=== PATIENT | male | born 1940 | race Caucasian/White ===

== ENCOUNTER 2016-12-23 14:42 | Inpatient (IN) | payer MEDICARE ==
--- NOTE | 2016-12-23 21:22 | PCM.HP ---
H&P History of Present Illness - General Date of Service: 12/23/16 Admit Problem/Dx: Admission Diagnosis/Problem Admission Diagnosis/Problem Weight loss Source of Information: Family History Limitations: Reports: Altered mental status, Physical impairment - History of Present Illness Initial Comments - Free Text/Narative: Jimmy is a 76-year-old male who has been diagnosed with severe mitral regurgitation and severe heart failure with a surgery procedure not an option. He's also been suffering from chronic kidney disease. He's had significant fluid retention secondary to cardiac dysfunction and he has become incontinent of urine and stool and confused. He has been passing his bodily functions on the rug or floor. He's also lost continence of urine and stool in the bed and the family has been cleaning him up. They've had a hard time when he falls to get him up off the floor as he is becoming totally confused and the family is unable to give him care at the present time. He recently has been hypotensive eating very minimal and losing a lot of weight. He's also had a rash in his groin area but refuses to have it evaluated. Onset of Symptoms: Reports: gradual Duration of Symptoms: Reports: Week(s): Location: Reports: generalized Severity: severe Associated Symptoms: Reports: confusion, cough, malaise, weakness - Related Data Allergies/Adverse Reactions: Allergies Allergy/AdvReac Type Severity Reaction Status Date / Time No Known Allergies Allergy Verified 12/24/16 08:38 Home Medications: Home Meds Aspirin [Ecotrin] 81 mg PO DAILY 12/23/16 [History] Furosemide [Lasix] 40 mg PO BID 12/23/16 [History] Past Medical History Cardiovascular History: Reports: Heart Failure, [place] Genitourinary History: Reports: Renal disease, Urinary incontinence Musculoskeletal History: Reports: Amputation - Past Surgical History HEENT Surgical History: Reports: Cataract surgery Male Surgical History: Reports: None Social & Family History - Tobacco Use Smoking Status *Q: Current Every Day Smoker Years of Tobacco use: 74 Packs/Tins Daily: 0.5 Used Tobacco, but Quit: Yes Month Tobacco Last Used: unknown - Caffeine Use Caffeine Use: Reports: None - Recreational Drug Use Recreational Drug Use: No H&P Review of Systems - Review of Systems: Review Of Systems: See Below General: Reports: weakness, decreased appetite, weight loss HEENT: Reports: hearing changes Pulmonary: Reports: shortness of breath, cough Cardiovascular: Reports: dyspnea on exertion, orthopnea, edema Gastrointestinal: Reports: Diarrhea Genitourinary: Reports: frequency, urgency Musculoskeletal: Reports: muscle pain Skin: Reports: no symptoms Psychiatric: Reports: no symptoms Neurological: Reports: difficulty walking, weakness, gait disturbance Exam - Exam Exam: See Below - Vital Signs Vital Signs: Last Vital Signs Temp 98 F 12/23/16 19:20 Pulse 58 L 12/23/16 19:20 Resp 19 12/23/16 19:20 BP 88/58 L 12/23/16 20:12 Pulse Ox 86 L 12/23/16 19:20 - Exam General: moderate distress HEENT: PERRLA Neck: supple Lungs: Normal respiratory effort Cardiovascular: regular rate Abdomen: normal bowel sounds Extremities: edema Peripheral Pulses: 1+: radial (L), radial (R) Skin: warm, dry Neurological: cranial nerves intact, reflexes equal bilateral, strength equal bilateral Psychiatric: agitated - Patient Data Lab Results last 24 hrs: Laboratory Results - last 24 hr 12/23/16 12/23/16 Range/Units 16:05 16:05 WBC 9.0 (4.5-11.0) K/uL RBC 4.12 L (4.30-5.90) M/uL Hgb 13.9 (12.0-15.0) g/dL Hct 42.2 (40.0-54.0) % MCV 102 H (80-98) fL MCH 34 H (27-31) pg MCHC 33 (32-36) % Plt Count 131 L (150-400) K/uL Neut % (Auto) 85 H (36-66) % Lymph % (Auto) 10 L (24-44) % Ogle % (Auto) 5 (2-6) % Eos % (Auto) 1 L (2-4) % Baso % (Auto) 0 (0-1) % Sodium 131 L (140-148) mmol/L Potassium 5.3 H (3.6-5.2) mmol/L Chloride 91 L (100-108) mmol/L Carbon Dioxide 33 H (21-32) mmol/L Anion Gap 12.3 (5.0-14.0) mmol/L BUN 87 H* (7-18) mg/dL Creatinine 3.0 H (0.8-1.3) mg/dL Est Cr Clr Drug Dosing TNP Estimated GFR (MDRD) 20 L (>60) Glucose 143 H (74-106) mg/dL Calcium 8.3 L (8.5-10.1) mg/dL Total Bilirubin 2.3 H (0.2-1.0) mg/dL AST 36 (15-37) U/L ALT 29 (12-78) U/L Alkaline Phosphatase 92 (46-116) U/L Total Protein 7.3 (6.4-8.2) g/dL Albumin 2.5 L (3.4-5.0) g/dL Globulin 4.8 H (2.3-3.5) g/dL Albumin/Globulin Ratio 0.5 L (1.2-2.2) TSH, Ultra Sensitive 1.117 (0.358-3.740) uIU/mL Result Diagrams: 12/23/16 16:05 12/24/16 05:00 *Q Meaningful Use (ADM) - VTE *Q VTE Criteria *Q: - Stroke *Q Stroke Criteria *Q: - AMI *Q AMI Criteria *Q: Problem List Initiated/Reviewed/Updated: Yes Orders Last 24hrs: Active Orders 24 hr Category Date Time Status Admission Status [Patient Status] [ADT] Routine ADT 12/23/16 13:00 Active Patient Status [ADT] Routine ADT 12/23/16 17:09 Active Height and Weight [RC] DAILY Care 12/23/16 17:09 Active Intake and Output [RC] .PRN Care 12/23/16 17:16 Active May Shower [RC] ASDIRECTED Care 12/23/16 17:09 Active Oxygen Therapy [RC] PRN Care 12/23/16 17:09 Active Up ad Lakia [RC] ASDIRECTED Care 12/23/16 17:09 Active Up to Chair [RC] QID Care 12/23/16 17:09 Active VTE/DVT Education [RC] Per Unit Routine Care 12/23/16 17:09 Active Vital Signs [RC] Q4H Care 12/23/16 17:09 Active Nystatin [Nystatin Crm] Med 12/23/16 21:00 Pending 1 gm TOP TID Resuscitation Status Routine Resus Stat 12/23/16 17:09 Ordered Medication Orders Nystatin (Nystatin Crm) 1 gm TOP TID [facility] Assessment/Plan Comment:: Assessment/Plan: #1. Dehydration. I will attempt to start an IV and given fluids and hopefully his kidney function will improve. His creatinine is 3 and BUN of 87. #2. Acute renal failure. I will try to get an IV started and give him fluids to improve his kidney function. #3. Mitral valve regurgitation. His mitral valve prolapse is not possible to repair as he is a poor surgical risk. #4. Malnutrition.. He's been losing weight on a regular basis. We'll try to get nutrition more appropriate. #5. Nicotine addiction
[2016-12-24] MEDS: Dextrose 5%-0.9% NaCl 1,000 ML IV SCH ×2 (00:54→11:52)
[2016-12-24] MEDS: Nystatin Crm 15 GM Tube TOP SCH ×4 (01:17→22:52)
--- NOTE | 2016-12-24 08:54 | CR ---
Portable chest There is infiltrate involving medial right lung base. The heart and vascular structures are within n ormal limits. There are no significant effusions seen. Impression: 1. Right lower lobe pneumonia. Follow-up is recommended to confirm resolution.
[2016-12-24] MEDS ORDERED: cefTRIAXone 1 GM in Sodium Chloride 0.9% 50 ML IV SCH (12:00)
[2016-12-24] MEDS ORDERED: Levofloxacin/Dextrose 5%-Water 750 MG in Premix Bag 1 BAG IV SCH (13:00)
[2016-12-24 20:00] VITALS: BP 86/68
--- NOTE | 2016-12-24 21:50 | PCM.PN ---
- General Info Date of Service: 12/24/16 Subjective Update: He has verbalized several times he wants nothing done and he wants to . There was a family counseled this afternoon. They met and want he on comfort cares only including no meds for a lung infiltrate. - Review of Systems General: Reports: weakness HEENT: Reports: visual changes Pulmonary: Reports: shortness of breath Cardiovascular: Reports: dyspnea on exertion, orthopnea Gastrointestinal: Reports: No symptoms Genitourinary: Reports: no symptoms Skin: Reports: pallor Neurological: Reports: confusion, difficulty walking, weakness, gait disturbance Psychiatric: Reports: confusion, depression - Patient Data Vitals - most recent: Last Vital Signs Temp 94.3 F L 12/24/16 19:58 Pulse 100 12/24/16 19:58 Resp 14 12/24/16 19:58 BP 86/68 L 12/24/16 19:58 Pulse Ox 93 L 12/24/16 19:58 Weight - most recent: 162 lb 0.001 oz I&O - last 24 hours: Intake & Output 12/24/16 12/24/16 12/24/16 06:59 14:59 22:59 Intake Total 126 977 [id number] Output Total 200 100 Balance 209 242 [id number] Lab Results last 24 hrs: Laboratory Results - last 24 hr 12/24/16 Range/Units 05:00 Sodium 135 L (140-148) mmol/L Potassium 4.5 (3.6-5.2) mmol/L Chloride 93 L (100-108) mmol/L Carbon Dioxide 33 H (21-32) mmol/L Anion Gap 13.5 (5.0-14.0) mmol/L BUN 89 H* (7-18) mg/dL Creatinine 2.9 H (0.8-1.3) mg/dL Est Cr Clr Drug Dosing TNP Estimated GFR (MDRD) 21 L (>60) Glucose 139 H (74-106) mg/dL Calcium 8.6 (8.5-10.1) mg/dL [place] Results last 24 hrs: Microbiology 12/24/16 13:39 Gram Stain - Final Sputum - Expectorated Med Orders - Current: Current Medications Nystatin (Nystatin Crm) 0 gm TOP TID [facility] Last Admin: 12/24/16 14:48 Dose: Not Given Discontinued Medications Dextrose/Sodium Chloride (Dextrose 5%-Normal Saline) 1,000 mls @ 125 mls/hr IV ASDIRECTED [facility] Last Admin: 12/24/16 11:52 Dose: 125 mls/hr Ceftriaxone Sodium 1 gm/ (Sodium Chloride) 50 mls @ 100 mls/hr IV Q24H [facility] Last Admin: 12/24/16 14:48 Dose: Not Given Levofloxacin/Dextrose 750 mg/ (Premix) 150 mls @ 100 mls/hr IV Q48H [facility] Last Admin: 12/24/16 14:48 Dose: Not Given - Exam General: moderate distress HEENT: Pupils equal Neck: supple Lungs: Clear to auscultation, Decreased breath sounds Cardiovascular: regular rate Abdomen: bowel sounds present, soft (scrotal erythema) Peripheral Pulses: 1+: radial (R), femoral (L) Skin: warm, dry Psy/Mental Status: depressed - Problem List Review Problem List Initiated/Reviewed/Updated: Yes - My Orders Last 24 Hours: My Active Orders 12/23/16 21:00 Nystatin [Nystatin Crm] 0 gm TOP TID 12/24/16 12:09 JESSI Bandage [Elastic Wrap] [OM.PC] Routine 12/24/16 13:39 CULTURE RESPIRATORY + SMEAR [RM] Routine 12/24/16 19:00 Comfort Measures [OM.PC] Routine Peripheral IV Discontinue [OM.PC] Routine 12/24/16 19:01 Code Status [Resuscitation Status] Routine 12/24/16 Lunch Regular Diet [DIET] - Plan Plan:: Assessment/Plan: #1. Dehydration. The family has chosen DNR/DNI comfort cares only and so the IV has been stopped we'll keep him comfortable. He'll be going to a long term tomorrow. No further blood work will be done. #2. Acute renal failure. secondary to dehydration and cardiovascular problems with mitral valve regurgitation. #3. Mitral valve regurgitation. His mitral valve prolapse is not possible to 6 as he is such a poor risk #4. Malnutrition.. He's been losing weight on a regular basis. We will let him eat what he wants to eat and keep him comfortable. #5. Nicotine addiction
--- NOTE | 2016-12-25 08:50 | PCM.DCSUM1 ---
Discharge Summary - Hospital Course Brief History: Jimmy is a 76-year-old male who has been diagnosed with severe mitral regurgitation and severe heart failure with a surgery procedure not an option. He's also been suffering from chronic kidney disease. He's had significant fluid retention secondary to cardiac dysfunction and he has become incontinent of urine and stool and confused. He has been passing his bodily functions on the rug or floor. He's also lost continence of urine and stool in the bed and the family has been cleaning him up. They've had a hard time when he falls to get him up off the floor as he is becoming totally confused and the family is unable to give him care at the present time. He recently has been hypotensive eating very minimal and losing a lot of weight. He's also had a rash in his groin area but refuses to have it evaluated. - Discharge Data Discharge Date: 12/25/16 Discharge Disposition[facility] Condition: Poor - Patient Summary/Data Hospital Course: He was dry when he came in and had a hard time starting a IV for fluids. His nutritional intake was very poor. The x-ray of the chest showed a infiltrate and the family chose not to treat. Hospice was consulted and the family decided to follow the patients wishes of DNR/DNI?comfort cares only. [facility]. - Discharge Plan Home Medications: Home Meds Aspirin [Ecotrin] 81 mg PO DAILY 12/23/16 [History] Furosemide [Lasix] 40 mg PO BID 12/23/16 [History] - General Info Date of Service: 12/25/16 Subjective Update: He has minimal food intake and very week and on O2. Functional Status: Reports: pain controlled - Review of Systems General: Reports: weakness HEENT: Reports: no symptoms Pulmonary: Reports: shortness of breath, cough Cardiovascular: Reports: no symptoms Gastrointestinal: Reports: No symptoms Genitourinary: Reports: no symptoms Musculoskeletal: Reports: no symptoms Skin: Reports: no symptoms Neurological: Reports: difficulty walking, weakness Psychiatric: Reports: anxiety, agitation - Patient Data Vitals - Most Recent: Last Vital Signs Temp 94.3 F L 12/24/16 19:58 Pulse 100 12/24/16 19:58 Resp 14 12/24/16 19:58 BP 86/68 L 12/24/16 19:58 Pulse Ox 93 L 12/24/16 19:58 Weight - Most Recent: 162 lb 0.001 oz I&O - Last 24 hours: Intake & Output 12/24/16 12/25/16 12/25/16 22:59 06:59 14:59 Intake Total 1618 240 Balance 1618 240 ARIELLE Results - Last 24 hrs: Microbiology 12/24/16 13:39 Gram Stain - Final Sputum - Expectorated Respiratory Culture - Preliminary Med Orders - Current: Current Medications Nystatin (Nystatin Crm) 0 gm TOP TID [facility] Last Admin: 12/24/16 22:52 Dose: Not Given Discontinued Medications Dextrose/Sodium Chloride (Dextrose 5%-Normal Saline) 1,000 mls @ 125 mls/hr IV ASDIRECTED [facility] Last Admin: 12/24/16 11:52 Dose: 125 mls/hr Ceftriaxone Sodium 1 gm/ (Sodium Chloride) 50 mls @ 100 mls/hr IV Q24H [facility] Last Admin: 12/24/16 14:48 Dose: Not Given Levofloxacin/Dextrose 750 mg/ (Premix) 150 mls @ 100 mls/hr IV Q48H [facility] Last Admin: 12/24/16 14:48 Dose: Not Given - Exam General: Reports: cooperative, moderate distress HEENT: Reports: Pupils equal Neck: Reports: supple Lungs: Reports: Decreased breath sounds Cardiovascular: Reports: irregular rhythm Abdomen: Reports: bowel sounds present Extremities: Reports: edema Skin: Reports: warm, dry Psy/Mental Status: Reports: depressed *Q Meaningful Use (DIS) - VTE *Q VTE Criteria *Q: - Stroke *Q Stroke Criteria *Q: - AMI *Q AMI Criteria *Q:
--- NOTE | 2016-12-25 08:59 | PCM.PN ---
- General Info Subjective Update: Very weak with minimal food intake. He doesn't want to live. - Review of Systems General: Reports: weakness, fatigue HEENT: Reports: no symptoms Pulmonary: Reports: shortness of breath, cough Cardiovascular: Reports: dyspnea on exertion, lightheadedness Gastrointestinal: Reports: Decreased appetite Neurological: Reports: confusion Psychiatric: Reports: depression, anxiety, agitation - Patient Data Vitals - most recent: Last Vital Signs Temp 94.3 F L 12/24/16 19:58 Pulse 100 12/24/16 19:58 Resp 14 12/24/16 19:58 BP 86/68 L 12/24/16 19:58 Pulse Ox 93 L 12/24/16 19:58 Weight - most recent: 162 lb 0.001 oz I&O - last 24 hours: Intake & Output 12/24/16 12/25/16 12/25/16 22:59 06:59 14:59 Intake Total 1618 240 Balance 1618 240 [place] Results last 24 hrs: Microbiology 12/24/16 13:39 Gram Stain - Final Sputum - Expectorated Respiratory Culture - Preliminary Med Orders - Current: Current Medications Nystatin (Nystatin Crm) 0 gm TOP TID [facility] Last Admin: 12/24/16 22:52 Dose: Not Given Discontinued Medications Dextrose/Sodium Chloride (Dextrose 5%-Normal Saline) 1,000 mls @ 125 mls/hr IV ASDIRECTED [facility] Last Admin: 12/24/16 11:52 Dose: 125 mls/hr Ceftriaxone Sodium 1 gm/ (Sodium Chloride) 50 mls @ 100 mls/hr IV Q24H [facility] Last Admin: 12/24/16 14:48 Dose: Not Given Levofloxacin/Dextrose 750 mg/ (Premix) 150 mls @ 100 mls/hr IV Q48H [facility] Last Admin: 12/24/16 14:48 Dose: Not Given - Exam General: alert, oriented Lungs: Clear to auscultation, Normal respiratory effort Cardiovascular: irregular rhythm Abdomen: bowel sounds present, soft Back Exam: normal inspection, full range of motion Extremities: edema Peripheral Pulses: 1+: radial (L), radial (R) Skin: warm, dry Psy/Mental Status: agitated - Problem List Review Problem List Initiated/Reviewed/Updated: Yes - My Orders Last 24 Hours: My Active Orders 12/24/16 12:09 JESSI Bandage [Elastic Wrap] [OM.PC] Routine 12/24/16 13:39 CULTURE RESPIRATORY + SMEAR [RM] Routine 12/24/16 19:00 Comfort Measures [OM.PC] Routine Peripheral IV Discontinue [OM.PC] Routine 12/24/16 19:01 Code Status [Resuscitation Status] Routine 12/24/16 Lunch Regular Diet [DIET] - Plan Plan:: Assessment/Plan: #1. Dehydration. The family has chosen DNR/DNI comfort cares only and so the IV has been stopped we'll keep him comfortable. He'll be going to a [facility] today. No further blood work will be done. #2. Acute renal failure. secondary to dehydration and cardiovascular problems with mitral valve regurgitation. #3. Mitral valve regurgitation. His mitral valve prolapse is not possible for surgery as he is a poor surgical risk #4. Malnutrition.. He's been losing weight on a regular basis. We will let him eat what he wants to eat and keep him comfortable. #5. Nicotine addiction
[2016-12-25] MEDS: Nystatin Crm 15 GM Tube TOP SCH (10:37)
== END 2016-12-25 12:00 | DRG 641 ==
LOC: JP.MS 14:42
PROVIDERS: ADMIT Internal Medicine; ATTEND Internal Medicine
DX: E86.0 Dehydration (principal); N17.9 Acute kidney failure, unspecified; E46 Unspecified protein-calorie malnutrition; N18.9 Chronic kidney disease, unspecified; I34.0 Nonrheumatic mitral (valve) insufficiency; I50.9 Heart failure, unspecified; Z66 Do not resuscitate; Z51.5 Encounter for palliative care; F17.210 Nicotine dependence, cigarettes, uncomplicated; I25.2 Old myocardial infarction; Z91.81 History of falling; R41.0 Disorientation, unspecified; R32 Unspecified urinary incontinence; R15.9 Full incontinence of feces; Z79.82 Long term (current) use of aspirin; R21 Rash and other nonspecific skin eruption; Z68.27 Body mass index [BMI] 27.0-27.9, adult
CPT/HCPCS: 36415; 71010; 71010-26; 80048; 80053; 84443; 85025; 87070; 87077; 87186; 87205; A9270-GY